=== PATIENT | male | born 2000 | race Caucasian/White ===

== ENCOUNTER 2025-05-25 15:57 | Emergency (ER) | payer OTHER, SELFPAY ==
[2025-05-25 16:19] VITALS: PULSE 73; RESP 16; TEMP 36.6; O2SAT 99; BMI 19.3
[2025-05-25] MEDS: PROPARACAINE 0.5% OPHTH SOL 1 DROPS EYE-RIGHT (16:34)
--- NOTE | 2025-05-25 17:29 | ED_ITS ---
HPI - Eye Problem <Kim Mosley PA-C - Last Filed: 05/25/25 18:49> General Chief complaint: Eye Problems Stated complaint: Rt Eye injury, tile debris, severe pain Time Seen by Provider: 05/25/25 17:18 Source: patient Mode of arrival: Ambulatory History of Present Illness HPI Narrative: Giancarlo Petersen is a pleasant 24-year-old male with no reported past medical history, does wear glasses, who presents to the emergency department for right eye pain after having debris from ceiling tile fall onto his right eye prior to arrival. Patient states he was at work, [place], when he was attempting to clean ceiling tiles in his room and debris fell down into his right eye. He developed immediate pain of the eye. He did try to flush out the eye and does not believe anything is stuck in there but now it feels like his eye has ?a cut?. He is having difficulty opening the eye due to the pain. Denies any other injuries. States it his vaccines including Tdap are up-to-date. No contact lens use. He is from [place]. Related Data Previous Rx's ?Medication ?Instructions ?Recorded erythromycin 5 mg/gram (0.5 %) eye 1 cm EYE-RIGHT QID 5 days #3.5 05/25/25 ointment grams Allergies Allergy/AdvReac Type Severity Reaction Status Date / Time No Known Drug Allergies Allergy Verified 05/25/25 16:19 Review of Systems <Kim Mosley PA-C - Last Filed: 05/25/25 18:49> Review of Systems ROS Unobtainable: All systems reviewed & are unremarkable except as noted in HPI and below Patient History <Kim Mosley PA-C - Last Filed: 05/25/25 18:49> tobacco type: vaping Exam <Kim Mosley PA-C - Last Filed: 05/25/25 18:49> Narrative Exam Narrative: GENERAL: 24 year old patient appears stated age. Well-developed patient, in mild distress 22/ R eye pain. HEAD: Atraumatic. Normocephalic. EYES: PERRL. Extraocular motions intact. Patient reluctant to open right eye because of pain however after proparacaine drops instilled, he is able to open his eye revealing injection of the right eye. No obvious foreign body. Fluorescein exam revealed revealing superficial abrasions across the center of the eye overlying the pupil. Negative Paco sign. Upper and lower eyelids were everted revealing no retained foreign body. NECK: Trachea midline. Cervical ROM intact. CARDIOVASCULAR: Regular rate RESPIRATORY: ?Nonlabored respirations. ?Speaking in clear, full sentences. NEURO: AOx3. ?Clear speech. ?Moves all 4 extremities appropriately. SKIN: No rash or erythema of visible areas Initial Vital Signs Initial Vital Signs: Vital Signs Temperature 97.9 F 05/25/25 16:19 Pulse Rate 73 05/25/25 16:19 Respiratory Rate 16 05/25/25 16:19 Pulse Oximetry 99 05/25/25 16:19 Oxygen Delivery Method Room Air 05/25/25 16:19 <Tom Villalta MD - Last Filed: 05/25/25 18:59> Initial Vital Signs Initial Vital Signs: Vital Signs Temperature 97.9 F 05/25/25 16:19 Pulse Rate 73 05/25/25 16:19 Respiratory Rate 16 05/25/25 16:19 Pulse Oximetry 99 05/25/25 16:19 Oxygen Delivery Method Room Air 05/25/25 16:19 Course <Kim Mosley PA-C - Last Filed: 05/25/25 18:49> Orders Ordered: Discontinued Medications Acetaminophen (Acetaminophen 325 Mg Tablet) 975 mg PO NOW ONE Stop: 05/25/25 18:02 Last Admin: 05/25/25 18:09 Dose: 975 mg Documented By: MADISON Erythromycin (Erythromycin Ophth 1 Gm Oint) 1 applic EYE-RIGHT NOW ONE Stop: 05/25/25 18:01 Last Admin: 05/25/25 18:09 Dose: 1 applic Documented By: MADISON Fluorescein Sodium (Fluorescein 1 Mg Strip) 1 mg EYE-RIGHT NOW ONE Stop: 05/25/25 17:35 Last Admin: 05/25/25 18:12 Dose: 1 mg Documented By: MADISON Ibuprofen (Ibuprofen 400 Mg Tablet) 400 mg PO NOW ONE Stop: 05/25/25 18:02 Last Admin: 05/25/25 18:08 Dose: 400 mg Documented By: MADISON Proparacaine HCl (Proparacaine 0.5% Ophth Suellen) 1 drops EYE-RIGHT NOW ONE Stop: 05/25/25 16:25 Last Admin: 05/25/25 16:34 Dose: 1 drops Documented By: MADISON Vital Signs Vital signs: Vital Signs - 8 hr 05/25/25 16:19 05/25/25 18:22 Temperature 97.9 F Pulse Rate 73 77 Respiratory Rate 16 19 Blood Pressure 130/83 Pulse Oximetry 99 100 Oxygen Delivery Method Room Air Room Air <Tom Villalta MD - Last Filed: 05/25/25 18:59> Orders Ordered: Discontinued Medications Acetaminophen (Acetaminophen 325 Mg Tablet) 975 mg PO NOW ONE Stop: 05/25/25 18:02 Last Admin: 05/25/25 18:09 Dose: 975 mg Documented By: MADISON Erythromycin (Erythromycin Ophth 1 Gm Oint) 1 applic EYE-RIGHT NOW ONE Stop: 05/25/25 18:01 Last Admin: 05/25/25 18:09 Dose: 1 applic Documented By: MADISON Fluorescein Sodium (Fluorescein 1 Mg Strip) 1 mg EYE-RIGHT NOW ONE Stop: 05/25/25 17:35 Last Admin: 05/25/25 18:12 Dose: 1 mg Documented By: MADISON Ibuprofen (Ibuprofen 400 Mg Tablet) 400 mg PO NOW ONE Stop: 05/25/25 18:02 Last Admin: 05/25/25 18:08 Dose: 400 mg Documented By: MADISON Proparacaine HCl (Proparacaine 0.5% Ophth Suellen) 1 drops EYE-RIGHT NOW ONE Stop: 05/25/25 16:25 Last Admin: 05/25/25 16:34 Dose: 1 drops Documented By: MADISON Vital Signs Vital signs: Vital Signs - 8 hr 05/25/25 16:19 05/25/25 18:22 Temperature 97.9 F Pulse Rate 73 77 Respiratory Rate 16 19 Blood Pressure 130/83 Pulse Oximetry 99 100 Oxygen Delivery Method Room Air Room Air MDM - Eye Problem <Kim Mosley PA-C - Last Filed: 05/25/25 18:49> MDM Narrative Medical decision making narrative: 24-year-old male with no reported past medical history, does wear glasses, who presents to the emergency department for right eye pain after having debris from ceiling tile fall onto his right eye prior to arrival. Differential diagnosis includes but is not limited to corneal abrasion, corneal foreign body, etc. On exam patient is nontoxic appearing, vital signs appropriate, he is in pain due to his right eye. Proparacaine drops were instilled immediately improving his pain. Exam reveals injection of the right eye, no obvious foreign body, fluorescein exam does reveal superficial abrasions over the center of the eye. Negative Paco sign, no open globe. Eyelids were everted revealing no foreign body. Five normal saline flushes were used to irrigate the eye after the procedure. Patient is feeling better with proparacaine drops however we discussed that these are not drops he can continue using. He was prescribed erythromycin ophthalmic ointment, 4 times a day x5 days. He was provided with ointment here in the ED and initiated ibuprofen and Tylenol. Discussed strict ER return precautions and follow up with Ophthalmology, PCP. Patient verbalized understanding of all information agreeable with the plan. He is stable for discharge home Discharge Plan Departure Patient Disposition: Home Clinical Impression: Abrasion of cornea, right Qualifiers: Encounter type: initial encounter Qualified Code(s): S05.01XA - Injury of conjunctiva and corneal abrasion without foreign body, right eye, initial encounter Instructions: DI for Corneal Abrasion Activity Restrictions/Additional Instructions: Dear Mr. Petersen, Thank you for coming to the emergency department. Today you were evaluated for pain in your right eye. Numbing drops were applied to the right eye and fluore scein/dye exam was performed revealing superficial abrasions on the surface of your eye. Your eye was flushed as well. Please apply antibiotic ointment 4 times a day for the next 5 days. Please use ibuprofen and Tylenol if needed for pain. Please avoid rubbing or putting anything into the eye besides the prescription. Please follow up with an eye doctor for repeat evaluation or return to the emergency department if develop any new or worsening symptoms. Please follow up with your primary care doctor within the next 2-3 days for ER follow-up. (If you do not have a PCP you can call [phone]. ?to schedule an appointment with an [facility] Primary Care Provider) IF YOU DEVELOP ANY NEW OR WORSENING SYMPTOMS, RETURN TO THE ER! Please read the attached instructions, they highlight more specific treatments and interventions for you at home. Thank you for letting me participate in your care, Kim Mosley PA-C Prescriptions: New erythromycin 5 mg/gram (0.5 %) ointment 1 cm EYE-RIGHT QID 5 Days Qty: 3.5 0RF Stand Alone Forms: Patient Portal/API ED Sign-out <Tom Villalta MD - Last Filed: 05/25/25 18:59> Cosign ED Attending Cosignature Attestation: I was immediately available in the department for consultation. ?This documentation has been reviewed and I agree with assessment and plan. Supervised by Tom Villalta MD
[2025-05-25] MEDS: IBUPROFEN 400 MG TABLET PO (18:08)
[2025-05-25] MEDS: ERYTHROMYCIN OPHTH 1 GM OINT 1 APPLIC EYE-RIGHT (18:09)
[2025-05-25] MEDS: ACETAMINOPHEN 325 MG TABLET 975 MG PO (18:09)
[2025-05-25] MEDS: FLUORESCEIN 1 MG STRIP EYE-RIGHT (18:12)
[2025-05-25 18:22] VITALS: BP 130/83; PULSE 77; RESP 19; O2SAT 100
== END 2025-05-25 18:25 | disposition home or self-care (01) ==
PROVIDERS: Emergency Provider Physician Assistant
DX: S05.01XA Injury of conjunctiva and corneal abrasion without foreign body, right eye, initial encounter (principal); W44.8XXA Other foreign body entering into or through a natural orifice, initial encounter; Y92.814 Boat as the place of occurrence of the external cause; Y99.0 Civilian activity done for income or pay
CPT/HCPCS: 99283